=== PATIENT | female | born 1955 | race Caucasian/White ===

== ENCOUNTER → 2020-02-19 | Outpatient (CLI) | payer MEDICARE ==
[~2020-02-19] MED LIST: ASPIRIN CHEWABL81 MG PO; CALCIUM 600 +1 EAC3 PO; CEFUROXIME500 MG PO; ENDOCET 10-3251 EACH PO; GLUCOPHAGE500 MG PO; IMITREX100 MG PO; IPRAT-ALBUT 0.5-3 ML INH; LOPRESSOR 25 MG25 MG PO; MONTELUKAST SOD10 MG PO; NEURONTIN 300300 MG PO; PEPCID20 MG PO; PROZAC40 MG PO; SEROQUEL200 MG PO; SYNTHROID100 MCG PO; TUSSIN MUC100 MG/5 M PO; VENTOLIN/PROVE0.5 ML INH; XANAX1 MG PO; ZANAFLEX4 MG PO; ZETIA 10 MG TAB10 MG PO; ZITHROMAX250 MG PO; ZOFRAN4 MG PO
== END ==
LOC: EMI 09:55
DX: G43.709 Chronic migraine without aura, not intractable, without status migrainosus (principal); G44.89 Other headache syndrome; R90.89 Other abnormal findings on diagnostic imaging of central nervous system
CPT/HCPCS: 70551

== ENCOUNTER 2021-08-26 14:19 | Observation (INO) | payer MEDICARE ==
[~2021-08-26] VITALS: Ht 160 cm; Wt 62.3 kg
[~2021-08-26 14:19] MED LIST changes: -NEURONTIN 300300 MG PO; +NEURONTIN800 MG PO; +ONDANSETRON ODT4 MG PO; -SEROQUEL200 MG PO; +SEROQUEL50 MG PO; -ZOFRAN4 MG PO
[2021-08-26 15:48] LABS: HEMOGLOBIN 16.2 gm/dl (12.3-15.3); RED BLOOD COUNT 4.96 M/UL (4.00-5.10); WHITE BLOOD COUNT 16.7 K/UL (4.5-11.0)
[2021-08-26 16:08] LABS: BUN/CREATININE RATIO 29 (0-10)
[2021-08-27 02:14] LABS: HEMOGLOBIN 14.9 gm/dl (12.3-15.3); RED BLOOD COUNT 4.56 M/UL (4.00-5.10)
[2021-08-27 03:06] LABS: BUN/CREATININE RATIO 28 (0-10)
[2021-08-27] MEDS ORDERED: HYDROCODON-ACE1 EAC2 PO (12:01)
[2021-08-27] MEDS ORDERED: IBU800 MG PO (12:02)
[2021-08-27] MEDS ORDERED: CRESTOR10 MG PO (12:04)
[2021-08-27] MEDS ORDERED: SPIRONOLACTONE1 EACH PO (12:06)
[2021-08-27] MEDS ORDERED: ALENDRONATE SOD70 MG PO (12:09)
[2021-08-27] MEDS ORDERED: VRAYLAR3 MG PO (12:11)
[2021-08-27] MEDS ORDERED: ESCITALOPRAM OX10 MG PO (12:11)
[2021-08-27] MEDS ORDERED: METHOCARBAMOL500 MG PO (12:14)
[2021-08-27] MEDS ORDERED: MELOXICAM15 MG PO (12:14)
[2021-08-27] MEDS ORDERED: OMEGA-3 1,0001 EACH PO (12:18)
[2021-08-27] MEDS ORDERED: OXYBUTYNIN CHLO15 MG PO (12:19)
[2021-08-27] MEDS ORDERED: TOPIRAMATE100 MG PO (12:20)
[2021-08-27] MEDS ORDERED: SYMBICORT 16010.2 GM INH (12:21)
[2021-08-27] MEDS ORDERED: NURTEC ODT75 MG PO (12:22)
[2021-08-27] MEDS ORDERED: OMEGA 3 1,0001 EACH PO (14:38)
[2021-08-27] MEDS ORDERED: POTASSIUM CHLO20 ME2 PO (14:41)
[2021-08-27] MEDS ORDERED: VITAMIN D325 MCG PO (14:42)
[2021-08-28 02:24] LABS: HEMOGLOBIN 14.1 gm/dl (12.3-15.3); RED BLOOD COUNT 4.46 M/UL (4.00-5.10)
--- NOTE | 2021-08-29 15:29 | NUR ---
SPOKE TO DU AT [facility] AND INFORMED HER PATIENT HAD BEEN DISCHARGE AND WAS LEAVING THE HOSPITAL TODAY INFORMED HER OF PATIENTS WEAKNESS AND NEED OF PT IN HOME. DU SAID THAT ALL THEY NEEDED WAS THE DISCHARGE SUMMARY SENT TO THEM AT THE FAX # [phone].
== END 2021-08-29 15:18 | disposition home or self-care (01) ==
LOC: ER1 14:19 → CDU 17:01 → M/S 17:01
PROVIDERS: Internal Medicine; Preventive Medicine Occupational Medicine; ADMIT Internal Medicine
DX: M79.601 Pain in right arm (principal); M25.511 Pain in right shoulder; R53.1 Weakness; M79.7 Fibromyalgia; G89.29 Other chronic pain; J44.9 Chronic obstructive pulmonary disease, unspecified; M19.90 Unspecified osteoarthritis, unspecified site; F41.9 Anxiety disorder, unspecified; F17.210 Nicotine dependence, cigarettes, uncomplicated; Z88.0 Allergy status to penicillin; Z88.2 Allergy status to sulfonamides; Z88.8 Allergy status to other drugs, medicaments and biological substances; Z20.822 Contact with and (suspected) exposure to COVID-19
CPT/HCPCS: 0240U; 36415; 70450; 70551; 71045; 72125; 72141; 73090; 73130; 80048; 80053; 80061; 81001; 82140; 83036; 83690; 83735; 84439; 84443; 85025; 85027; 85610; 85652; 86140; 87086; 93005; 93971; 96374; 96376; 97110; 97161; 97166; 99285; G0378; J2270